=== PATIENT | male | born 1995 | race African-American/Black ===

== ENCOUNTER 2017-09-19 19:02 | Emergency (ER) | payer BC ==
[~2017-09-19] VITALS: Ht 182.9 cm; Wt 90.7 kg
[~2017-09-19 19:02] MED LIST: DELSYM COUGH+C180 M1 PO; FLONASE 0.05%50 MCG NASAL; GUAIFEN-CODEINE10 ML PO; GUAIFENESIN-CO118 ML PO; IBUPROFEN 600600 M1 PO; LORATIDINE 10 M10 M1 PO; MEDROLDOSEPACK PO; MUCINEX D ER 11 EACH PO; PENICILLIN V P500 MG PO; PREDNISONE 20 M20 MG PO; PROAIR HFA8.5 GM INH; PROMETHAZI6.25 MG/5 PO; PROMETHAZINE D480 ML PO; PROMETHAZINE-C120 ML PO; PROMETHAZINE/C118 ML PO; TESSALON PERLE100 MG PO; VENTOLIN HFA 1818 GM INH; ZPAK PO; ZYRTEC 10 MG TA10 MG PO
[2017-09-19 19:05] VITALS: BP 126/77
[2017-09-19] MEDS ORDERED: VENTOLIN HFA 1818 GM INH (19:21)
[2017-09-19] MEDS ORDERED: PREDNISONE 20 M20 MG PO (19:21)
[2017-09-21] MEDS ORDERED: PREDNISONE 20 M20 MG PO (16:03)
[2017-09-21] MEDS ORDERED: PROAIR HFA8.5 GM INH (16:03)
[2018-03-08] MEDS ORDERED: PREDNISONE 20 M20 MG PO (18:13)
[2018-03-08] MEDS ORDERED: VENTOLIN HFA 1818 GM INH (18:13)
[2018-03-08] MEDS ORDERED: CLARITIN-D 121 EAC1 PO (18:13)
== END 2017-09-19 19:27 | disposition home or self-care (01) ==
LOC: M.ERS 19:02
DX: R05 Cough (principal); Z88.8 Allergy status to other drugs, medicaments and biological substances